=== PATIENT | female | born 2000 | race African-American/Black ===

== ENCOUNTER 2021-02-05 16:36 | Outpatient (CLI) | payer OTHER | END 2021-02-05 21:38 | disposition home or self-care (01) | LOC: RAD 16:36 | PROVIDERS: ATTEND Nurse Practitioner Family | DX: M06.4 Inflammatory polyarthropathy (principal); R76.0 Raised antibody titer; M25.521 Pain in right elbow; M25.561 Pain in right knee; M25.562 Pain in left knee ==